=== PATIENT | male | born 1950 ===

== ENCOUNTER 2018-04-12 21:00 | Inpatient (IN) | payer MEDICARE ==
[~2018-04-12] VITALS: Ht 190.5 cm; Wt 69.9 kg
[~2018-04-12 21:00] MED LIST: AMLO5TAB10 PO; ASPI-630 PO; CITA20TA6 PO; L GA1CAP2 PO; METO50TA29 PO; OMEP20CA10 PO; PRED5TAB PO; TRAM50TA PO
[2018-04-12] MEDS ORDERED: VANCOMYCIN PER PHARMACY MC ONE (21:45)
[2018-04-12] MEDS ORDERED: VANCOMYCIN 1.75 GM in IV NORMAL SALINE 500ML BAG 500 ML IV ONE (22:00)
[2018-04-12] MEDS ORDERED: PIPERACILLIN/TAZOBACTAM 4.5 GM in IV NORMAL SALINE 100ML 100 ML IV ONE (22:00)
--- NOTE | 2018-04-12 22:08 | PHYS DOC ---
Past Medical History Past Medical History: CHF, CVA, Hypertension, Other Additional Past Medical Histor: LEFT SIDED PARALYSIS (STEVE CABRERA APRN) Past Surgical History: No Surgical History (STEVE CABRERA APRN) Alcohol Use: None Drug Use: None (STEVE CABRERA APRN) Adult General Chief Complaint Chief Complaint: LOWER EXTREMITY SWELLING HPI HPI Patient is a 68 year old male with history of CVA, expressive aphasia, who presents to the ED with family. speaks Chukese and the granddaughter is in the ED interpreting for us. states patient usually has chronic pedal edema , is concerned his edema has decreased and he has discoloration on the right lateral lower extremity that they noted today with weeping of fluid from the extremities as well as a skin tear on the right lower extremity. denies patient having any injury. stated patient's current mentation is normal. Patient awake alert and oriented to self only. Patient can answer simple questions with either eye movements or slight sounds. (STEVE CABRERA APRN) Review of Systems Review of Systems Constitutional: GRIS Eyes: GRIS HENT: GRIS Respiratory: GRIS Cardiovascular: GRIS GI: GRIS : GRIS Musculoskeletal: GRIS Integument: Family reports bilateral lower extremity swelling, weeping, discoloration, laceration/skin tear. Neurologic: GRIS All other systems were reviewed and found to be within normal limits, except as documented in this note. (STEVE CABRERA APRN) Current Medications Current Medications Current Medications Medications (Trade) Dose Ordered Sig/Alejandro Start Time Stop Time Status Last Admin Dose Admin Piperacillin Sod/ Tazobactam Sod 4.5 gm/Sodium Chloride 100 ml @ 200 mls/hr 1X ONCE 04/12/18 22:00 04/12/18 22:29 DC 04/12/18 22:35 200 MLS/HR Vancomycin HCl (Vanco Per Pharmacy) 1 each 1X ONCE 04/12/18 21:45 04/12/18 22:00 DC Vancomycin HCl 1.75 gm/Sodium Chloride 500 ml @ 250 mls/hr 1X ONCE 04/12/18 22:00 04/12/18 23:59 DC 04/12/18 23:12 250 MLS/HR (NATHANIEL BISHOP MD) Allergies Allergies Allergies Coded Allergies Type Severity Reaction Last Updated Verified No Known Drug Allergies 02/05/16 No (NATHANIEL BISHOP MD) Physical Exam Physical Exam Constitutional: Well developed, well nourished, no acute distress HENT: Normocephalic, atraumatic, bilateral external ears normal, oropharynx moist, no oral exudates, nose normal. [] Eyes: PERRLA, EOMI, conjunctiva normal, no discharge. [] Neck: supple, no stridor. [] Cardiovascular:Heart rate regular rhythm Lungs & Thorax: Bilateral breath sounds clear to auscultation [] Abdomen: Bowel sounds normal, soft, GRIS for tenderness Skin: Warm, dry no rash Back: No tenderness, no CVA tenderness. [] Extremities: Bilateral upper extremities are contracted. Bilateral lower extremities with what appears to be +4 chronic edema right worse than left. The skin on the right lateral jaramillo is weeping. There is a open skin tear approximately 3 cm long on the right mid lateral jaramillo. Limited range of motion to bilateral lower extremities. +1 bilateral pedal pulses. There is discoloration on the right lateral lower extremity that appear to be from pressure. Neurologic: Alert and oriented X 1, normal motor function, normal sensory function, no focal deficits noted. [] Psychologic: Flat affect (MUTUNGA,STEVE MILITARY LOGISTICS SPECIALIST) Current Patient Data Vital Signs Vital Signs Date Time Temp Pulse Resp B/P (MAP) Pulse Ox O2 Delivery O2 Flow Rate FiO2 04/12/18 23:07 50 137/72 (93) 99 Room Air 04/12/18 21:00 97.8 16 97.8 (NATHANIEL BISHOP MD) Lab Values Laboratory Tests Test 04/12/18 21:50 White Blood Count 6.1 x10^3/uL (4.0-11.0) Red Blood Count 4.01 x10^6/uL (4.30-5.70) L Hemoglobin 12.6 g/dL (13.0-17.5) L Hematocrit 38.7 % (39.0-53.0) L Mean Corpuscular Volume 97 fL (79-100) Mean Corpuscular Hemoglobin 32 pg (25-35) Mean Corpuscular Hemoglobin Concent 33 g/dL (31-37) Red Cell Distribution Width 13.9 % (11.5-14.5) Platelet Count 163 x10^3/uL (140-400) Neutrophils (%) (Auto) 47 % (31-73) Lymphocytes (%) (Auto) 42 % (24-48) Monocytes (%) (Auto) 6 % (0-9) Eosinophils (%) (Auto) 4 % (0-3) H Basophils (%) (Auto) 1 % (0-3) Neutrophils # (Auto) 2.8 x10^3uL (1.8-7.7) Lymphocytes # (Auto) 2.6 x10^3/uL (1.0-4.8) Monocytes # (Auto) 0.4 x10^3/uL (0.0-1.1) Eosinophils # (Auto) 0.2 x10^3/uL (0.0-0.7) Basophils # (Auto) 0.1 x10^3/uL (0.0-0.2) Prothrombin Time 14.4 SEC (11.7-14.0) H Prothrombin Time INR 1.2 (0.8-1.1) H PTT 30 SEC (24-38) Sodium Level 143 mmol/L (136-145) Potassium Level 4.1 mmol/L (3.5-5.1) Chloride Level 104 mmol/L (98-107) Carbon Dioxide Level 28 mmol/L (21-32) Anion Gap 11 (6-14) Blood Urea Nitrogen 21 mg/dL (8-26) Creatinine 0.8 mg/dL (0.7-1.3) Estimated GFR (Cockcroft-Gault) 96.7 BUN/Creatinine Ratio 26 (6-20) H Glucose Level 87 mg/dL (70-99) Lactic Acid Level 1.3 mmol/L (0.4-2.0) Calcium Level 8.6 mg/dL (8.5-10.1) Total Bilirubin 0.7 mg/dL (0.2-1.0) Aspartate Amino Transferase (AST) 23 U/L (15-37) Alanine Aminotransferase (ALT) 19 U/L (16-63) Alkaline Phosphatase 62 U/L (46-116) Ammonia 19 mcmol/L (11-34) Creatine Kinase 256 U/L (39-308) Creatine Kinase MB (Mass) 5.4 ng/mL (0.0-3.6) H Creatine Kinase MB Relative Index 2.1 % (0-4) Troponin I Quantitative 0.025 ng/mL (0.000-0.055) NR-Pij-M-Type Natriuretic Peptide 328 pg/mL (0-124) H Total Protein 7.6 g/dL (6.4-8.2) Albumin 3.5 g/dL (3.4-5.0) Albumin/Globulin Ratio 0.9 (1.0-1.7) L Procalcitonin < 0.10 ng/mL (0.00-0.10) Laboratory Tests 04/12/18 21:50 Laboratory Tests 04/12/18 21:50 Microbiology 04/12/18 Blood Culture - Final, Complete NO GROWTH AFTER 5 DAYS (NATHANIEL BISHOP MD) Lab Values Laboratory Tests Test 04/12/18 21:50 White Blood Count 6.1 x10^3/uL (4.0-11.0) Red Blood Count 4.01 x10^6/uL (4.30-5.70) L Hemoglobin 12.6 g/dL (13.0-17.5) L Hematocrit 38.7 % (39.0-53.0) L Mean Corpuscular Volume 97 fL (79-100) Mean Corpuscular Hemoglobin 32 pg (25-35) Mean Corpuscular Hemoglobin Concent 33 g/dL (31-37) Red Cell Distribution Width 13.9 % (11.5-14.5) Platelet Count 163 x10^3/uL (140-400) Neutrophils (%) (Auto) 47 % (31-73) Lymphocytes (%) (Auto) 42 % (24-48) Monocytes (%) (Auto) 6 % (0-9) Eosinophils (%) (Auto) 4 % (0-3) H Basophils (%) (Auto) 1 % (0-3) Neutrophils # (Auto) 2.8 x10^3uL (1.8-7.7) Lymphocytes # (Auto) 2.6 x10^3/uL (1.0-4.8) Monocytes # (Auto) 0.4 x10^3/uL (0.0-1.1) Eosinophils # (Auto) 0.2 x10^3/uL (0.0-0.7) Basophils # (Auto) 0.1 x10^3/uL (0.0-0.2) Prothrombin Time 14.4 SEC (11.7-14.0) H Prothrombin Time INR 1.2 (0.8-1.1) H PTT 30 SEC (24-38) Sodium Level 143 mmol/L (136-145) Potassium Level 4.1 mmol/L (3.5-5.1) Chloride Level 104 mmol/L (98-107) Carbon Dioxide Level 28 mmol/L (21-32) Anion Gap 11 (6-14) Blood Urea Nitrogen 21 mg/dL (8-26) Creatinine 0.8 mg/dL (0.7-1.3) Estimated GFR (Cockcroft-Gault) 96.7 BUN/Creatinine Ratio 26 (6-20) H Glucose Level 87 mg/dL (70-99) Lactic Acid Level 1.3 mmol/L (0.4-2.0) Calcium Level 8.6 mg/dL (8.5-10.1) Total Bilirubin 0.7 mg/dL (0.2-1.0) Aspartate Amino Transferase (AST) 23 U/L (15-37) Alanine Aminotransferase (ALT) 19 U/L (16-63) Alkaline Phosphatase 62 U/L (46-116) Ammonia 19 mcmol/L (11-34) Creatine Kinase 256 U/L (39-308) Creatine Kinase MB (Mass) 5.4 ng/mL (0.0-3.6) H Creatine Kinase MB Relative Index 2.1 % (0-4) Troponin I Quantitative 0.025 ng/mL (0.000-0.055) TR-Xyb-O-Type Natriuretic Peptide 328 pg/mL (0-124) H Total Protein 7.6 g/dL (6.4-8.2) Albumin 3.5 g/dL (3.4-5.0) Albumin/Globulin Ratio 0.9 (1.0-1.7) L Procalcitonin < 0.10 ng/mL (0.00-0.10) Laboratory Tests 04/12/18 21:50 Laboratory Tests 04/12/18 21:50 (STEVE CABRERA APRN) EKG EKG [] (STEVE CABRERA APRN) Radiology/Procedures Radiology/Procedures [] (STEVE CABRERA APRN) Course & Med Decision Making Course & Med Decision Making Pertinent Labs and Imaging studies reviewed. (See chart for details) This is a 68-year-old male patient presenting to the ED to be evaluated for what family describes as decreased in a chronic edema to bilateral lower extremities, weeping from the right lower extremity, skin tear on the right lower extremity. Patient is afebrile. CBC with a normal WBC, CMP with no acute findings, lactic is normal. Chest x- ray interpreted by radiologist was concerning for pneumoperitoneum. CT of abdomen and pelvic ordered. Information left with Dr. Bishop to check on the Ct prior to admission. (STEVE CABRERA APRN) Course & Med Decision Making MARISOL CT NEGATIVE FOR PNEUMOPERITONEUM. ADMITTED TO MEDICAL SERVICE FOR ABX, TREATMENT OF ABOVE LOWER EXT CELLULITIS. Staff Physician Addendum: I was working in the ER during the course of this patient's visit. I was available for consultation as needed, but I was not directly involved in the care of this patient. (NATHANIEL BISHOP MD) Dragon Disclaimer Dragon Disclaimer This electronic medical record was generated, in whole or in part, using a voice recognition dictation system. (STEVE CABRERA APRN) Departure Departure Impression: Primary Impression: Bilateral lower extremity edema Disposition: ADMITTED INPATIENT Admitting Physician: Rina Allison (NATHANIEL BISHOP MD) Condition: STABLE Referrals: CAIO MCKEON AUCTION BLOCK CLERK-C (PCP) Scripts Amoxicillin/Potassium Clav (AUGMENTIN 500-125 TABLET) 1 Each Tablet 1 TAB PO BID for infection, #20 TAB Prov: CONNIE PERRY MD 04/14/18 STEVE CABRERA APRN Apr 12, 2018 22:08 NATHANIEL BISHOP MD Apr 13, 2018 04:42
[2018-04-12 22:14] LABS: BASO # 0.1 x10^3/uL (0.0-0.2); BASO % 1 % (0-3); EOS # 0.2 x10^3/uL (0.0-0.7); EOS % 4 % (0-3); HEMATOCRIT 38.7 % (39.0-53.0); HEMOGLOBIN 12.6 g/dL (13.0-17.5); LYMPH # 2.6 x10^3/uL (1.0-4.8); LYMPH % 42 % (24-48); MEAN CORPUSCULAR HEMOGLOBIN 32 pg (25-35); MEAN CORPUSCULAR HGB CONC 33 g/dL (31-37); MEAN CORPUSCULAR VOLUME 97 fL (79-100); MONO # 0.4 x10^3/uL (0.0-1.1); MONO % 6 % (0-9); NEUT # 2.8 x10^3uL (1.8-7.7); NEUT % 47 % (31-73); PLATELET COUNT 163 x10^3/uL (140-400); RED BLOOD COUNT 4.01 x10^6/uL (4.30-5.70); RED CELL DISTRIBUTION WIDTH 13.9 % (11.5-14.5); WHITE BLOOD COUNT 6.1 x10^3/uL (4.0-11.0)
[2018-04-12 22:29] LABS: CALCIUM 8.6 mg/dL (8.5-10.1); CREATININE 0.8 mg/dL (0.7-1.3); GFR 96.7; POTASSIUM 4.1 mmol/L (3.5-5.1)
[2018-04-12 22:37] LABS: PROTHROMBIN TIME PATIENT 14.4 SEC (11.7-14.0)
[2018-04-12 22:39] LABS: ALBUMIN 3.5 g/dL (3.4-5.0); ALBUMIN/GLOBULIN RATIO 0.9 (1.0-1.7); TOTAL BILIRUBIN 0.7 mg/dL (0.2-1.0); TOTAL PROTEIN 7.6 g/dL (6.4-8.2)
--- NOTE | 2018-04-12 22:46 | RAD ---
Ultrasound venous Doppler INDICATION:BILAT LEG SWELLING TECHNIQUE: Grayscale, color Doppler and spectral waveform ultrasound images of the bilateral lower extremities deep veins obtained. COMPARISON: None FINDINGS: The interrogated deep veins are compressible and demonstrate evidence of blood flow with normal respiratory variation and response to augmentation. IMPRESSION: No sonographic evidence of acute DVT of the bilateral lower extremity deep veins. Electronically signed by: Magno Mack DO (04/12/2018 10:43 PM) [facility]
--- NOTE | 2018-04-12 23:29 | RAD ---
Indication:BLE SWELLING. UNABLE TO EXTEND NECK TECHNIQUE:Portable AP chest X-ray COMPARISON:None FINDINGS: Heart is normal in size. Patient is rotated to the right side. Lungs are clear. No pneumothorax or pleural effusion. Visualized bony thorax within normal limits. Bilateral subdiaphragmatic lucencies are seen. IMPRESSION: 1. No acute pulmonary process. 2. Bilateral subdiaphragmatic lucency most likely secondary to juxta position of the hepatic flexure and splenic flexure. If concern for pneumoperitoneum is high, please consider CT abdomen pelvis. 3. Distended upper colon. Correlate for distal obstruction. Electronically signed by: Magno Mack DO (04/12/2018 11:27 PM) [facility]
[2018-04-13] LABS: BILIRUBIN,URINE MODERATE (NEG); CLARITY,URINE CLOUDY; COLOR,URINE AMBER; NITRITE,URINE NEGATIVE (NEG); PH,URINE 5.5; PROTEIN,URINE NEGATIVE (NEG-TRACE)
[2018-04-13] MEDS ORDERED: IOHEXOL 300 MG/ML 100ML VIAL. IV ONE
[2018-04-13] MEDS ORDERED: CONTRAST GIVEN. MC PRN
[2018-04-13 00:10] LABS: BACTERIA,URINE 0 /HPF (0-FEW); RBC,URINE OCC /HPF (0-2); WBC,URINE 0 /HPF (0-4)
[2018-04-13 00:11] LABS: SQUAMOUS EPITHELIAL CELL,UR FEW /LPF
--- NOTE | 2018-04-13 00:43 | RAD ---
EXAM: CT Abdomen and Pelvis with IV contrast CLINICAL HISTORY: eval for pneumoperitoneum; abdominal pain. COMPARISON: 02/05/2016 TECHNIQUE: Helical CT of the abdomen and pelvis was performed following the administration of intravenous contrast. Oral contrast was administered. Axial, coronal and sagittal reformatted images were generated. PQRS compliance statement - One or more of the following individualized dose reduction techniques were utilized for this study: 1. Automated exposure control 2. Adjustment of the mA and/or kV according to patient size 3. Use of iterative reconstruction technique FINDINGS: Lower chest: Linear opacities in lower lobes and lingula likely scarring/atelectasis. Coronary artery calcification is seen. Abdomen and Pelvis: No focal liver lesion. Gallbladder is normal. No biliary ductal dilatation. Spleen is normal in appearance. Adrenal glands are unremarkable. Pancreas is grossly unremarkable. Symmetric nephrograms. No focal renal lesion. No hydronephrosis. No hydroureter. Large volume colonic stool content is seen throughout the colon. No small bowel dilatation. No evidence for small bowel obstruction. No evidence for free intraperitoneal gas. No abdominal or pelvic ascites. No abdominal or pelvic lymphadenopathy by size criteria although a few prominent iliac chain and inguinal lymph nodes are seen. Bones: Diffusely decreased bone mineral density. Degenerative changes of the spine. IMPRESSION: 1. No evidence for bowel obstruction. 2. Large volume colonic stool content. 3. No evidence for free intraperitoneal gas. Electronically signed by: Beni Knapp MD (04/13/2018 12:40 AM) [id number]
[2018-04-13] MEDS ORDERED: MORPHINE SULFATE 4 MG/ML VIAL. IV PRN (00:45)
[2018-04-13] MEDS ORDERED: DIPHTH,PERTUSS(ACELL),TET TOX 0.5 ML DISP.SYRIN. VAX IM ONE (00:45)
[2018-04-13] MEDS ORDERED: ONDANSETRON PF 4 MG/2 ML VIAL. IV PRN (00:45)
[2018-04-13 02:30] VITALS: BP 112/59
--- NOTE | 2018-04-13 04:58 | EKG ---
[facility] [address] [place] [address] Test Date: 2018-04-12 Test Time: 21:33:16 Pat Name: UMM CARDOZO Department: Room: [facility] Gender: M Packing Machine Operator: : [id number] Requested By: STEVE CABRERA Order Number: [id number] Reading MD: Saul Urena Measurements Intervals Rattan Rate: 54 P: UT: QRS: 28 QRSD: 100 T: 40 QT: 450 QTc: 429 Interpretive Statements SINUS RHYTHM NON-SPECIFIC ST/T CHANGES Electronically Signed On 04-20-2018 10:52:06 [employer] by Saul Urena
[2018-04-13 07:15] VITALS: BP 113/60
--- NOTE | 2018-04-13 08:59 | PDOC1 ---
History and Physical Date of Admission Date of Admission DATE: 04/13/18 TIME: 08:59 Identification/Chief Complaint Chief Complaint SEEN IN ER LAST PM history of CVA, expressive aphasia, who presents to the ED with family. speaks Chukese and the granddaughter interpreting for us. states patient usually has chronic pedal edema, is concerned his edema has decreased and he has discoloration on the right lateral lower extremity that they noted today with weeping of fluid from the extremities as well as a skin tear on the right lower extremity. Past Medical History Past Medical History Past Medical History Past Medical History: CHF, CVA, Hypertension, Other Additional Past Medical Histor: LEFT SIDED PARALYSIS Past Medical History: CHF, CVA, Hypertension, Other Additional Past Medical Histor: LEFT SIDED PARALYSIS, Past Surgical History: No Surgical History, Other Alcohol Use: None Drug Use: None FAMILY HX HTN Cardiovascular: HTN GI: Constipation Dermatology: Cellulitis Past Surgical History Past Surgical History: No pertinent history Family History Family History: No Significant, Hypertension Social History Smoke: No ALCOHOL: none Drugs: None Current Medications Current Medications Current Medications Piperacillin Sod/ Tazobactam Sod 4.5 gm/Sodium Chloride 100 ml @ 200 mls/hr 1X ONCE IV Last administered on 04/12/18at 22:35; Start 04/12/18 at 22:00; Stop 04/12/18 at 22:29; Status DC Vancomycin HCl (Vanco Per Pharmacy) 1 each 1X ONCE MC ; Start 04/12/18 at 21:45 ; Stop 04/12/18 at 22:00; Status DC Vancomycin HCl 1.75 gm/Sodium Chloride 500 ml @ 250 mls/hr 1X ONCE IV Last administered on 04/12/18at 23:12; Start 04/12/18 at 22:00; Stop 04/12/18 at 23:59 ; Status DC Iohexol (Omnipaque 300 Mg/ml) 75 ml 1X ONCE IV Last administered on 04/13/18at 00:12; Start 04/13/18 at 00:00; Stop 04/13/18 at 00:01; Status DC Info (CONTRAST GIVEN -- Rx MONITORING) 1 each PRN DAILY PRN MC SEE COMMENTS; Start 04/13/18 at 00:00; Stop 04/15/18 at 00:00 Ondansetron HCl (Zofran) 4 mg PRN Q8HRS PRN IV NAUSEA/VOMITING; Start 04/13/18 at 00:45; Stop 04/14/18 at 00:44 Morphine Sulfate (Morphine Sulfate) 2 mg PRN Q2HR PRN IV PAIN; Start 04/13/18 at 00:45; Stop 04/14/18 at 00:44 Diphtheria/ Tetanus/Acell Pertussis (Boostrix) 0.5 ml ONCE ONCE VAX IM Last administered on 04/13/18at 01:33; Start 04/13/18 at 00:45; Stop 04/13/18 at 00:48 ; Status DC Influenza Virus Vaccine (Afluria Trivalent [id number] Syringe) 0.5 ml ONCE ONCE VAX IM Last administered on 04/13/18at 08:25; Start 04/13/18 at 09:00; Stop at 09:01 Active Scripts Active Reported Tramadol Hcl 50 Mg Tablet 0.5 Tab PO PRN Q6HRS [facility] Capsule (L Gasseri/B Bifidum/B Longum) 1 Each Capsule 1 Each PO Prednisone 5 Mg Tablet 5 Mg PO Omeprazole 20 Mg Capsule.dr 1 Cap PO DAILY Metoprolol Succinate 50 Mg Tab.er.24h 50 Mg PO Citalopram Hbr (Citalopram Hydrobromide) 20 Mg Tablet 1 Tab PO DAILY Aspirin 81 Mg Tab.chew 1 Tab PO DAILY Amlodipine Besylate 5 Mg Tablet 1 Tab PO DAILY Allergies Allergies: Coded Allergies: No Known Drug Allergies (Unverified , 02/05/16) ROS ALLERGY AND IMMUNOLOGY: No: Hives, Insect Bite Sensitivity, Itchy/Watery Eyes, Nasal Congestion, Post Nasal Drip, Seasonal Allergies, Other Hematological and Lymphatic: No: Bleeding Problems, Blood Clots, Blood Transfusions, Brusing, Night Sweats, Pallor, Swollen Lymph Nodes, Other ENDOCRINE: No: Breast Changes, Galactorrhea, Hair Pattern Changes, Hot Flashes , Malaise/lethargy, Mood Swings, Palpitations, Polydipsia/polyuria, Skin Changes , Temperature Intolerance, Unexpected Weight Changes, Other Gastrointestinal: No Nausea, No Vomiting, No Abdominal Pain, No Diarrhea, No Constipation, No Melena, No Hematochezia, No Other Neurological: No Behavorial Changes, No Bowel/Bladder ControlChng, No Confusion , No Dizziness, No Gait Disturbance, No Headaches, No Impaired Coord/balance, No Memory Loss, No Numbness/Tingling, No Seizures, No Speech Problems, No Tremors, No Visual Changes, No Weakness, No Other Skin: Yes Dry Skin, Yes Rash, Yes Skin Lesion Changes Physical Exam Physical Exam Physical Exam Physical Exam Constitutional: Well developed, well nourished, no acute distress HENT: Normocephalic, atraumatic, bilateral external ears normal, oropharynx moist, no oral exudates, nose normal. [] Eyes: PERRLA, EOMI, conjunctiva normal, no discharge. [] Neck: supple, no stridor. [] Cardiovascular:Heart rate regular rhythm Lungs & Thorax: Bilateral breath sounds clear to auscultation [] Abdomen: Bowel sounds normal, soft, GRIS for tenderness Skin: Warm, dry no rash Back: No tenderness, no CVA tenderness. [] Extremities: Bilateral upper extremities are contracted. Bilateral lower extremities with what appears to be +4 chronic edema right worse than left. The skin on the right lateral jaramillo is weeping. There is a open skin tear approximately 3 cm long on the right mid lateral jaramillo. Limited range of motion to bilateral lower extremities. +1 bilateral pedal pulses. There is discoloration on the right lateral lower extremity that appear to be from pressure. Neurologic: Alert and oriented X 1, normal motor function, normal sensory function, no focal deficits noted. [] General: Cooperative, No acute distress HEENT: Atraumatic, PERRLA Lungs: Clear to auscultation Heart: RRR Abdomen: Normal bowel sounds Rectal Exam: not examined PELVIC: Examination not indicated Extremities: No cyanosis Vitals Vitals Vital Signs Date Time Temp Pulse Resp B/P (MAP) Pulse Ox O2 Delivery O2 Flow Rate FiO2 04/13/18 07:38 Room Air 04/13/18 07:15 97.0 56 16 113/60 (77) 98 97.0 Labs Labs Laboratory Tests Test 04/12/18 21:50 04/12/18 23:45 White Blood Count 6.1 x10^3/uL (4.0-11.0) Red Blood Count 4.01 x10^6/uL (4.30-5.70) Hemoglobin 12.6 g/dL (13.0-17.5) Hematocrit 38.7 % (39.0-53.0) Mean Corpuscular Volume 97 fL (79-100) Mean Corpuscular Hemoglobin 32 pg (25-35) Mean Corpuscular Hemoglobin Concent 33 g/dL (31-37) Red Cell Distribution Width 13.9 % (11.5-14.5) Platelet Count 163 x10^3/uL (140-400) Neutrophils (%) (Auto) 47 % (31-73) Lymphocytes (%) (Auto) 42 % (24-48) Monocytes (%) (Auto) 6 % (0-9) Eosinophils (%) (Auto) 4 % (0-3) Basophils (%) (Auto) 1 % (0-3) Neutrophils # (Auto) 2.8 x10^3uL (1.8-7.7) Lymphocytes # (Auto) 2.6 x10^3/uL (1.0-4.8) Monocytes # (Auto) 0.4 x10^3/uL (0.0-1.1) Eosinophils # (Auto) 0.2 x10^3/uL (0.0-0.7) Basophils # (Auto) 0.1 x10^3/uL (0.0-0.2) Prothrombin Time 14.4 SEC (11.7-14.0) Prothromb Time International Ratio 1.2 (0.8-1.1) Activated Partial Thromboplast Time 30 SEC (24-38) Sodium Level 143 mmol/L (136-145) Potassium Level 4.1 mmol/L (3.5-5.1) Chloride Level 104 mmol/L (98-107) Carbon Dioxide Level 28 mmol/L (21-32) Anion Gap 11 (6-14) Blood Urea Nitrogen 21 mg/dL (8-26) Creatinine 0.8 mg/dL (0.7-1.3) Estimated GFR (Cockcroft-Gault) 96.7 BUN/Creatinine Ratio 26 (6-20) Glucose Level 87 mg/dL (70-99) Lactic Acid Level 1.3 mmol/L (0.4-2.0) Calcium Level 8.6 mg/dL (8.5-10.1) Total Bilirubin 0.7 mg/dL (0.2-1.0) Aspartate Amino Transf (AST/SGOT) 23 U/L (15-37) Alanine Aminotransferase (ALT/SGPT) 19 U/L (16-63) Alkaline Phosphatase 62 U/L (46-116) Ammonia 19 mcmol/L (11-34) Creatine Kinase 256 U/L (39-308) Creatine Kinase MB (Mass) 5.4 ng/mL (0.0-3.6) Creatine Kinase MB Relative Index 2.1 % (0-4) Troponin I Quantitative 0.025 ng/mL (0.000-0.055) MY-Bri-W-Type Natriuretic Peptide 328 pg/mL (0-124) Total Protein 7.6 g/dL (6.4-8.2) Albumin 3.5 g/dL (3.4-5.0) Albumin/Globulin Ratio 0.9 (1.0-1.7) Procalcitonin < 0.10 ng/mL (0.00-0.10) Urine Collection Type U cath Urine Color Mgiuelina Urine Clarity Cloudy Urine pH 5.5 Urine Specific Philip 1.025 Urine Protein Negative mg/dL (NEG-TRACE) Urine Glucose (UA) Negative mg/dL (NEG) Urine Ketones (Stick) Negative mg/dL (NEG) Urine Blood Negative (NEG) Urine Nitrite Negative (NEG) Urine Bilirubin Moderate (NEG) Urine Urobilinogen Dipstick 1.0 mg/dL (0.2 mg/dL) Urine Leukocyte Esterase Negative (NEG) Urine RBC Occ /HPF (0-2) Urine WBC 0 /HPF (0-4) Urine Squamous Epithelial Cells Few /LPF Urine Bacteria 0 /HPF (0-FEW) Urine Mucus Mod /LPF Laboratory Tests Test 04/12/18 21:50 04/12/18 23:45 White Blood Count 6.1 x10^3/uL (4.0-11.0) Red Blood Count 4.01 x10^6/uL (4.30-5.70) Hemoglobin 12.6 g/dL (13.0-17.5) Hematocrit 38.7 % (39.0-53.0) Mean Corpuscular Volume 97 fL (79-100) Mean Corpuscular Hemoglobin 32 pg (25-35) Mean Corpuscular Hemoglobin Concent 33 g/dL (31-37) Red Cell Distribution Width 13.9 % (11.5-14.5) Platelet Count 163 x10^3/uL (140-400) Neutrophils (%) (Auto) 47 % (31-73) Lymphocytes (%) (Auto) 42 % (24-48) Monocytes (%) (Auto) 6 % (0-9) Eosinophils (%) (Auto) 4 % (0-3) Basophils (%) (Auto) 1 % (0-3) Neutrophils # (Auto) 2.8 x10^3uL (1.8-7.7) Lymphocytes # (Auto) 2.6 x10^3/uL (1.0-4.8) Monocytes # (Auto) 0.4 x10^3/uL (0.0-1.1) Eosinophils # (Auto) 0.2 x10^3/uL (0.0-0.7) Basophils # (Auto) 0.1 x10^3/uL (0.0-0.2) Prothrombin Time 14.4 SEC (11.7-14.0) Prothromb Time International Ratio 1.2 (0.8-1.1) Activated Partial Thromboplast Time 30 SEC (24-38) Sodium Level 143 mmol/L (136-145) Potassium Level 4.1 mmol/L (3.5-5.1) Chloride Level 104 mmol/L (98-107) Carbon Dioxide Level 28 mmol/L (21-32) Anion Gap 11 (6-14) Blood Urea Nitrogen 21 mg/dL (8-26) Creatinine 0.8 mg/dL (0.7-1.3) Estimated GFR (Cockcroft-Gault) 96.7 BUN/Creatinine Ratio 26 (6-20) Glucose Level 87 mg/dL (70-99) Lactic Acid Level 1.3 mmol/L (0.4-2.0) Calcium Level 8.6 mg/dL (8.5-10.1) Total Bilirubin 0.7 mg/dL (0.2-1.0) Aspartate Amino Transf (AST/SGOT) 23 U/L (15-37) Alanine Aminotransferase (ALT/SGPT) 19 U/L (16-63) Alkaline Phosphatase 62 U/L (46-116) Ammonia 19 mcmol/L (11-34) Creatine Kinase 256 U/L (39-308) Creatine Kinase MB (Mass) 5.4 ng/mL (0.0-3.6) Creatine Kinase MB Relative Index 2.1 % (0-4) Troponin I Quantitative 0.025 ng/mL (0.000-0.055) UV-Dhq-B-Type Natriuretic Peptide 328 pg/mL (0-124) Total Protein 7.6 g/dL (6.4-8.2) Albumin 3.5 g/dL (3.4-5.0) Albumin/Globulin Ratio 0.9 (1.0-1.7) Procalcitonin < 0.10 ng/mL (0.00-0.10) Urine Collection Type U cath Urine Color Miguelina Urine Clarity Cloudy Urine pH 5.5 Urine Specific Philip 1.025 Urine Protein Negative mg/dL (NEG-TRACE) Urine Glucose (UA) Negative mg/dL (NEG) Urine Ketones (Stick) Negative mg/dL (NEG) Urine Blood Negative (NEG) Urine Nitrite Negative (NEG) Urine Bilirubin Moderate (NEG) Urine Urobilinogen Dipstick 1.0 mg/dL (0.2 mg/dL) Urine Leukocyte Esterase Negative (NEG) Urine RBC Occ /HPF (0-2) Urine WBC 0 /HPF (0-4) Urine Squamous Epithelial Cells Few /LPF Urine Bacteria 0 /HPF (0-FEW) Urine Mucus Mod /LPF Images Images EXAM: CT Abdomen and Pelvis with IV contrast CLINICAL HISTORY: eval for pneumoperitoneum; abdominal pain. COMPARISON: 02/05/2016 TECHNIQUE: Helical CT of the abdomen and pelvis was performed following the administration of intravenous contrast. Oral contrast was administered. Axial, coronal and sagittal reformatted images were generated. PQRS compliance statement - One or more of the following individualized dose reduction techniques were utilized for this study: 1. Automated exposure control 2. Adjustment of the mA and/or kV according to patient size 3. Use of iterative reconstruction technique FINDINGS: Lower chest: Linear opacities in lower lobes and lingula likely scarring/atelectasis. Coronary artery calcification is seen. Abdomen and Pelvis: No focal liver lesion. Gallbladder is normal. No biliary ductal dilatation. Spleen is normal in appearance. Adrenal glands are unremarkable. Pancreas is grossly unremarkable. Symmetric nephrograms. No focal renal lesion. No hydronephrosis. No hydroureter. Large volume colonic stool content is seen throughout the colon. No small bowel dilatation. No evidence for small bowel obstruction. No evidence for free intraperitoneal gas. No abdominal or pelvic ascites. No abdominal or pelvic lymphadenopathy by size criteria although a few prominent iliac chain and inguinal lymph nodes are seen. Bones: Diffusely decreased bone mineral density. Degenerative changes of the spine. IMPRESSION: 1. No evidence for bowel obstruction. 2. Large volume colonic stool content. 3. No evidence for free intraperitoneal gas. 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 [employer]IOT[employer], CONNIE AGUIAR MD Apr 13, 2018 08:59
[2018-04-13 11:08] VITALS: BP 131/67
[2018-04-13 15:01] VITALS: BP 138/72
--- NOTE | 2018-04-13 15:54 | NUR ---
Wound Care; Consult to eval and treat skin tear to RLE (see detailed assessment). Cleansed and dressed with contact layer and foam dressing. Legs swollen, red and warm. Wrinkled skin to feet. Encouraged pt to turn periodically to avoid skin breakdown. No other open areas noted on head to toe inspection. Follow up 04/21/18
[2018-04-13 19:56] VITALS: BP 100/58
[2018-04-13 23:15] VITALS: BP 108/66
[2018-04-13] MEDS ORDERED: traMADol 50 MG TABLET PO PRN (23:45)
[2018-04-14] MEDS ORDERED: VANCOMYCIN PER PHARMACY MC PRN
[2018-04-14] MEDS: PIPERACILLIN/TAZOBACTAM 3.375 GM in IV NORMAL SALINE 50ML 50 ML IV SCH ×2 (00:43→06:16)
[2018-04-14] MEDS ORDERED: VANCOMYCIN 1 GM in IV NORMAL SALINE 250ML 250 ML IV SCH (01:00)
--- NOTE | 2018-04-14 01:10 | NUR ---
Pharmacy Vancomycin Dosing Note S:Consulted to monitor and dose vancomycin started 04/14/18. O:UMM CARDOZO is a 68 year old M with LOWER LEG EDEMA AND WEEPING . Height: 6 feet, 3 inches Weight: 69.138311 kg [place] Body Weight: 80.00 Adjusted Body Weight: 75.92 Dosing Weight: Actual Other Antibiotics: LABS: Last BUN: 21 Last Creatinine: 0.8 Creatinine Clearance: 72 mL/min Last WBC: 601 Last Procalcitonin: Tmax (past 24 hours): Microbiology: I/O: Drug Levels: Last level: on at Last dose given 04/12/18 at 2200 Vancomycin Dosing: Loading Dose: 1750MG IV X1 ON 04/12/18 2200 x1 PER MAR Dosing Weight: Actual Target Trough: 10-20 A: Based on: Actual Wt and CrCl P: 1. 04/14/18 0100 continue with Vancomycin 1000 mg IV q12h 2. Follow up Trough level on 04/15/18 at 1230 3. Pharmacy will continue to monitor, follow and adjust therapy as needed. DAYNE HENRIQUEZ RPH, 04/14/18 0110 Signed: 04/14/18 at 0111 by DAYNE HENRIQUEZ RPH PHA
[2018-04-14 03:34] VITALS: BP 112/63
[2018-04-14 06:00] LABS: BASO % 1 % (0-3); EOS # 0.3 x10^3/uL (0.0-0.7); EOS % 6 % (0-3); HEMATOCRIT 30.1 % (39.0-53.0); HEMOGLOBIN 9.9 g/dL (13.0-17.5); LYMPH % 42 % (24-48); MEAN CORPUSCULAR HEMOGLOBIN 32 pg (25-35); MEAN CORPUSCULAR HGB CONC 33 g/dL (31-37); MEAN CORPUSCULAR VOLUME 97 fL (79-100); MONO # 0.4 x10^3/uL (0.0-1.1); MONO % 8 % (0-9); NEUT # 2.1 x10^3uL (1.8-7.7); NEUT % 44 % (31-73); PLATELET COUNT 128 x10^3/uL (140-400); RED BLOOD COUNT 3.09 x10^6/uL (4.30-5.70); WHITE BLOOD COUNT 4.8 x10^3/uL (4.0-11.0)
[2018-04-14 06:34] LABS: ALBUMIN 2.4 g/dL (3.4-5.0); ALBUMIN/GLOBULIN RATIO 0.7 (1.0-1.7); GFR 74.8; POTASSIUM 3.9 mmol/L (3.5-5.1); TOTAL BILIRUBIN 0.6 mg/dL (0.2-1.0); TOTAL PROTEIN 5.8 g/dL (6.4-8.2)
[2018-04-14] MEDS ORDERED: METOPROLOL SUCC 24HR ER 50 MG TAB.ER.24H. PO SCH (07:00)
[2018-04-14 07:06] VITALS: BP 116/60
[2018-04-14] MEDS ORDERED: PANTOPRAZOLE 40 MG TABLET.DR. PO SCH (07:30)
[2018-04-14] MEDS ORDERED: ASPIRIN CHEWABLE 81 MG TABLET. PO SCH (08:00)
[2018-04-14] MEDS ORDERED: amLODIPine BESYLATE 5 MG TABLET PO SCH (09:00)
[2018-04-14] MEDS ORDERED: CITALOPRAM 20 MG TABLET. PO SCH (09:00)
--- NOTE | 2018-04-14 09:13 | PDOC ---
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 PLAN EMPERIC IV ANTIBIOTICS, VANC d/c, begin augmentin 500 mg po bid x 10 days Vitals Vitals Vital Signs Date Time Temp Pulse Resp B/P (MAP) Pulse Ox O2 Delivery O2 Flow Rate FiO2 04/14/18 08:25 50 116/60 04/14/18 07:06 97.7 18 96 Room Air 97.7 Physical Exam General: Alert, Oriented X3, Cooperative, No acute distress, mild distress Heart: Regular rate Lungs: Clear, Crackles Abdomen: Normal bowel sounds, Soft, No tenderness, No hepatosplenomegaly Extremities: No clubbing, No cyanosis Skin: Other (less erythema both ankles) Labs LABS Laboratory Tests Test 04/14/18 04:44 White Blood Count 4.8 x10^3/uL (4.0-11.0) Red Blood Count 3.09 x10^6/uL (4.30-5.70) Hemoglobin 9.9 g/dL (13.0-17.5) Hematocrit 30.1 % (39.0-53.0) Mean Corpuscular Volume 97 fL (79-100) Mean Corpuscular Hemoglobin 32 pg (25-35) Mean Corpuscular Hemoglobin Concent 33 g/dL (31-37) Red Cell Distribution Width 14.0 % (11.5-14.5) Platelet Count 128 x10^3/uL (140-400) Neutrophils (%) (Auto) 44 % (31-73) Lymphocytes (%) (Auto) 42 % (24-48) Monocytes (%) (Auto) 8 % (0-9) Eosinophils (%) (Auto) 6 % (0-3) Basophils (%) (Auto) 1 % (0-3) Neutrophils # (Auto) 2.1 x10^3uL (1.8-7.7) Lymphocytes # (Auto) 2.0 x10^3/uL (1.0-4.8) Monocytes # (Auto) 0.4 x10^3/uL (0.0-1.1) Eosinophils # (Auto) 0.3 x10^3/uL (0.0-0.7) Basophils # (Auto) 0.0 x10^3/uL (0.0-0.2) Sodium Level 146 mmol/L (136-145) Potassium Level 3.9 mmol/L (3.5-5.1) Chloride Level 110 mmol/L (98-107) Carbon Dioxide Level 30 mmol/L (21-32) Anion Gap 6 (6-14) Blood Urea Nitrogen 23 mg/dL (8-26) Creatinine 1.0 mg/dL (0.7-1.3) Estimated GFR (Cockcroft-Gault) 74.8 BUN/Creatinine Ratio 23 (6-20) Glucose Level 86 mg/dL (70-99) Calcium Level 8.0 mg/dL (8.5-10.1) Total Bilirubin 0.6 mg/dL (0.2-1.0) Aspartate Amino Transf (AST/SGOT) 19 U/L (15-37) Alanine Aminotransferase (ALT/SGPT) 14 U/L (16-63) Alkaline Phosphatase 53 U/L (46-116) Total Protein 5.8 g/dL (6.4-8.2) Albumin 2.4 g/dL (3.4-5.0) Albumin/Globulin Ratio 0.7 (1.0-1.7) Procalcitonin < 0.10 ng/mL (0.00-0.10) Comment Review of Relevant I have reviewed the following items carlos (where applicable) has been applied. Labs Laboratory Tests Test 04/12/18 21:50 04/12/18 23:45 04/14/18 04:44 White Blood Count 6.1 x10^3/uL (4.0-11.0) 4.8 x10^3/uL (4.0-11.0) Red Blood Count 4.01 x10^6/uL (4.30-5.70) 3.09 x10^6/uL (4.30-5.70) Hemoglobin 12.6 g/dL (13.0-17.5) 9.9 g/dL (13.0-17.5) Hematocrit 38.7 % (39.0-53.0) 30.1 % (39.0-53.0) Mean Corpuscular Volume 97 fL (79-100) 97 fL (79-100) Mean Corpuscular Hemoglobin 32 pg (25-35) 32 pg (25-35) Mean Corpuscular Hemoglobin Concent 33 g/dL (31-37) 33 g/dL (31-37) Red Cell Distribution Width 13.9 % (11.5-14.5) 14.0 % (11.5-14.5) Platelet Count 163 x10^3/uL (140-400) 128 x10^3/uL (140-400) Neutrophils (%) (Auto) 47 % (31-73) 44 % (31-73) Lymphocytes (%) (Auto) 42 % (24-48) 42 % (24-48) Monocytes (%) (Auto) 6 % (0-9) 8 % (0-9) Eosinophils (%) (Auto) 4 % (0-3) 6 % (0-3) Basophils (%) (Auto) 1 % (0-3) 1 % (0-3) Neutrophils # (Auto) 2.8 x10^3uL (1.8-7.7) 2.1 x10^3uL (1.8-7.7) Lymphocytes # (Auto) 2.6 x10^3/uL (1.0-4.8) 2.0 x10^3/uL (1.0-4.8) Monocytes # (Auto) 0.4 x10^3/uL (0.0-1.1) 0.4 x10^3/uL (0.0-1.1) Eosinophils # (Auto) 0.2 x10^3/uL (0.0-0.7) 0.3 x10^3/uL (0.0-0.7) Basophils # (Auto) 0.1 x10^3/uL (0.0-0.2) 0.0 x10^3/uL (0.0-0.2) Prothrombin Time 14.4 SEC (11.7-14.0) Prothromb Time International Ratio 1.2 (0.8-1.1) Activated Partial Thromboplast Time 30 SEC (24-38) Sodium Level 143 mmol/L (136-145) 146 mmol/L (136-145) Potassium Level 4.1 mmol/L (3.5-5.1) 3.9 mmol/L (3.5-5.1) Chloride Level 104 mmol/L (98-107) 110 mmol/L (98-107) Carbon Dioxide Level 28 mmol/L (21-32) 30 mmol/L (21-32) Anion Gap 11 (6-14) 6 (6-14) Blood Urea Nitrogen 21 mg/dL (8-26) 23 mg/dL (8-26) Creatinine 0.8 mg/dL (0.7-1.3) 1.0 mg/dL (0.7-1.3) Estimated GFR (Cockcroft-Gault) 96.7 74.8 BUN/Creatinine Ratio 26 (6-20) 23 (6-20) Glucose Level 87 mg/dL (70-99) 86 mg/dL (70-99) Lactic Acid Level 1.3 mmol/L (0.4-2.0) Calcium Level 8.6 mg/dL (8.5-10.1) 8.0 mg/dL (8.5-10.1) Total Bilirubin 0.7 mg/dL (0.2-1.0) 0.6 mg/dL (0.2-1.0) Aspartate Amino Transf (AST/SGOT) 23 U/L (15-37) 19 U/L (15-37) Alanine Aminotransferase (ALT/SGPT) 19 U/L (16-63) 14 U/L (16-63) Alkaline Phosphatase 62 U/L (46-116) 53 U/L (46-116) Ammonia 19 mcmol/L (11-34) Creatine Kinase 256 U/L (39-308) Creatine Kinase MB (Mass) 5.4 ng/mL (0.0-3.6) Creatine Kinase MB Relative Index 2.1 % (0-4) Troponin I Quantitative 0.025 ng/mL (0.000-0.055) WS-Sqq-M-Type Natriuretic Peptide 328 pg/mL (0-124) Total Protein 7.6 g/dL (6.4-8.2) 5.8 g/dL (6.4-8.2) Albumin 3.5 g/dL (3.4-5.0) 2.4 g/dL (3.4-5.0) Albumin/Globulin Ratio 0.9 (1.0-1.7) 0.7 (1.0-1.7) Procalcitonin < 0.10 ng/mL (0.00-0.10) < 0.10 ng/mL (0.00-0.10) Urine Collection Type U cath Urine Color Miguelina Urine Clarity Cloudy Urine pH 5.5 Urine Specific Rugby 1.025 Urine Protein Negative mg/dL (NEG-TRACE) Urine Glucose (UA) Negative mg/dL (NEG) Urine Ketones (Stick) Negative mg/dL (NEG) Urine Blood Negative (NEG) Urine Nitrite Negative (NEG) Urine Bilirubin Moderate (NEG) Urine Urobilinogen Dipstick 1.0 mg/dL (0.2 mg/dL) Urine Leukocyte Esterase Negative (NEG) Urine RBC Occ /HPF (0-2) Urine WBC 0 /HPF (0-4) Urine Squamous Epithelial Cells Few /LPF Urine Bacteria 0 /HPF (0-FEW) Urine Mucus Mod /LPF Laboratory Tests Test 04/14/18 04:44 White Blood Count 4.8 x10^3/uL (4.0-11.0) Red Blood Count 3.09 x10^6/uL (4.30-5.70) Hemoglobin 9.9 g/dL (13.0-17.5) Hematocrit 30.1 % (39.0-53.0) Mean Corpuscular Volume 97 fL (79-100) Mean Corpuscular Hemoglobin 32 pg (25-35) Mean Corpuscular Hemoglobin Concent 33 g/dL (31-37) Red Cell Distribution Width 14.0 % (11.5-14.5) Platelet Count 128 x10^3/uL (140-400) Neutrophils (%) (Auto) 44 % (31-73) Lymphocytes (%) (Auto) 42 % (24-48) Monocytes (%) (Auto) 8 % (0-9) Eosinophils (%) (Auto) 6 % (0-3) Basophils (%) (Auto) 1 % (0-3) Neutrophils # (Auto) 2.1 x10^3uL (1.8-7.7) Lymphocytes # (Auto) 2.0 x10^3/uL (1.0-4.8) Monocytes # (Auto) 0.4 x10^3/uL (0.0-1.1) Eosinophils # (Auto) 0.3 x10^3/uL (0.0-0.7) Basophils # (Auto) 0.0 x10^3/uL (0.0-0.2) Sodium Level 146 mmol/L (136-145) Potassium Level 3.9 mmol/L (3.5-5.1) Chloride Level 110 mmol/L (98-107) Carbon Dioxide Level 30 mmol/L (21-32) Anion Gap 6 (6-14) Blood Urea Nitrogen 23 mg/dL (8-26) Creatinine 1.0 mg/dL (0.7-1.3) Estimated GFR (Cockcroft-Gault) 74.8 BUN/Creatinine Ratio 23 (6-20) Glucose Level 86 mg/dL (70-99) Calcium Level 8.0 mg/dL (8.5-10.1) Total Bilirubin 0.6 mg/dL (0.2-1.0) Aspartate Amino Transf (AST/SGOT) 19 U/L (15-37) Alanine Aminotransferase (ALT/SGPT) 14 U/L (16-63) Alkaline Phosphatase 53 U/L (46-116) Total Protein 5.8 g/dL (6.4-8.2) Albumin 2.4 g/dL (3.4-5.0) Albumin/Globulin Ratio 0.7 (1.0-1.7) Procalcitonin < 0.10 ng/mL (0.00-0.10) Microbiology 04/12/18 Blood Culture - Preliminary, Resulted NO GROWTH AFTER 1 DAY Medications Current Medications Piperacillin Sod/ Tazobactam Sod 4.5 gm/Sodium Chloride 100 ml @ 200 mls/hr 1X ONCE IV Last administered on 04/12/18at 22:35; Start 04/12/18 at 22:00; Stop 04/12/18 at 22:29; Status DC Vancomycin HCl (Vanco Per Pharmacy) 1 each 1X ONCE MC ; Start 04/12/18 at 21:45 ; Stop 04/12/18 at 22:00; Status DC Vancomycin HCl 1.75 gm/Sodium Chloride 500 ml @ 250 mls/hr 1X ONCE IV Last administered on 04/12/18at 23:12; Start 04/12/18 at 22:00; Stop 04/12/18 at 23:59 ; Status DC Iohexol (Omnipaque 300 Mg/ml) 75 ml 1X ONCE IV Last administered on 04/13/18at 00:12; Start 04/13/18 at 00:00; Stop 04/13/18 at 00:01; Status DC Info (CONTRAST GIVEN -- Rx MONITORING) 1 each PRN DAILY PRN MC SEE COMMENTS; Start 04/13/18 at 00:00; Stop 04/15/18 at 00:00 Ondansetron HCl (Zofran) 4 mg PRN Q8HRS PRN IV NAUSEA/VOMITING; Start 04/13/18 at 00:45; Stop 04/14/18 at 00:44; Status DC Morphine Sulfate (Morphine Sulfate) 2 mg PRN Q2HR PRN IV PAIN; Start 04/13/18 at 00:45; Stop 04/14/18 at 00:44; Status DC Diphtheria/ Tetanus/Acell Pertussis (Boostrix) 0.5 ml ONCE ONCE VAX IM Last administered on 04/13/18at 01:33; Start 04/13/18 at 00:45; Stop 04/13/18 at 00:48 ; Status DC Influenza Virus Vaccine (Afluria Trivalent 8015-1590 Syringe) 0.5 ml ONCE ONCE VAX IM Last administered on 04/13/18at 08:25; Start 04/13/18 at 09:00; Stop at 09:01; Status DC Vancomycin HCl (Vanco Per Pharmacy) 1 each PRN DAILY PRN MC SEE COMMENTS Last administered on 04/14/18at 01:00; Start 04/14/18 at 00:00 Amlodipine Besylate (Norvasc) 5 mg DAILY PO Last administered on 04/14/18at 08: 25; Start 04/14/18 at 09:00 Aspirin (Children'S Aspirin) 81 mg DAILYWBKFT PO Last administered on at 08:25; Start 04/14/18 at 08:00 Citalopram Hydrobromide (CeleXA) 20 mg DAILY PO Last administered on 04/14/18at 08:26; Start 04/14/18 at 09:00 Metoprolol Succinate (Toprol Xl) 50 mg DAILY07 PO ; Start 04/14/18 at 07:00 Tramadol HCl (Ultram) 25 mg PRN Q6HRS PRN PO PAIN; Start 04/13/18 at 23:45 Pantoprazole Sodium (Protonix) 40 mg DAILYAC PO Last administered on 04/14/18at 08:25; Start 04/14/18 at 07:30 Piperacillin Sod/ Tazobactam Sod 3.375 gm/Sodium Chloride 50 ml @ 100 mls/hr Q6HRS IV Last administered on 04/14/18at 06:16; Start 04/14/18 at 00:00 Vancomycin HCl 1 gm/Sodium Chloride 250 ml @ 250 mls/hr Q12H IV Last administered on 04/14/18at 01:53; Start 04/14/18 at 01:00 Vancomycin HCl (Vancomycin Trough Level) 1 each 1X ONCE MC ; Start 04/15/18 at 12:30; Stop 04/15/18 at 12:31 Active Scripts Active Reported Tramadol Hcl 50 Mg Tablet 0.5 Tab PO PRN Q6HRS [employer] Capsule (L Gasseri/B Bifidum/B Longum) 1 Each Capsule 1 Each PO Prednisone 5 Mg Tablet 5 Mg PO Omeprazole 20 Mg Capsule.dr 1 Cap PO DAILY Metoprolol Succinate 50 Mg Tab.er.24h 50 Mg PO Citalopram Hbr (Citalopram Hydrobromide) 20 Mg Tablet 1 Tab PO DAILY Aspirin 81 Mg Tab.chew 1 Tab PO DAILY Amlodipine Besylate 5 Mg Tablet 1 Tab PO DAILY Vitals/I & O Vital Sign - Last 24 Hours 04/13/18 04/13/18 04/13/18 04/13/18 11:08 15:01 19:56 20:00 Temp 98.0 98.3 97.4 98.0 98.3 97.4 Pulse 56 52 61 Resp 18 20 16 B/P (MAP) 131/67 (88) 138/72 (94) 100/58 (72) Pulse Ox 98 97 96 O2 Delivery Room Air Room Air Room Air Room Air 04/13/18 04/14/18 04/14/18 04/14/18 23:15 03:34 06:20 07:06 Temp 97.8 98.1 97.7 97.8 98.1 97.7 Pulse 61 55 51 50 Resp 16 18 18 B/P (MAP) 108/66 (80) 112/63 (79) 116/60 (78) Pulse Ox 96 97 96 O2 Delivery Room Air Room Air Room Air 04/14/18 08:25 Pulse 50 B/P (MAP) 116/60 Intake and Output 04/13/18 04/13/18 04/14/18 15:00 23:00 07:00 Intake Total 0 ml 240 ml Balance 0 ml 240 ml CONNIE PERRY MD Apr 14, 2018 09:13
[2018-04-14 10:47] VITALS: BP 99/57
--- NOTE | 2018-04-14 12:00 | PDOC ---
Infectious Disease Note Vital Sign Vital Signs Vital Signs Date Time Temp Pulse Resp B/P (MAP) Pulse Ox O2 Delivery O2 Flow Rate FiO2 04/14/18 10:47 98.2 73 17 99/57 (71) 99 Room Air 98.2 Labs Lab Laboratory Tests Test 04/14/18 04:44 White Blood Count 4.8 x10^3/uL (4.0-11.0) Red Blood Count 3.09 x10^6/uL (4.30-5.70) Hemoglobin 9.9 g/dL (13.0-17.5) Hematocrit 30.1 % (39.0-53.0) Mean Corpuscular Volume 97 fL (79-100) Mean Corpuscular Hemoglobin 32 pg (25-35) Mean Corpuscular Hemoglobin Concent 33 g/dL (31-37) Red Cell Distribution Width 14.0 % (11.5-14.5) Platelet Count 128 x10^3/uL (140-400) Neutrophils (%) (Auto) 44 % (31-73) Lymphocytes (%) (Auto) 42 % (24-48) Monocytes (%) (Auto) 8 % (0-9) Eosinophils (%) (Auto) 6 % (0-3) Basophils (%) (Auto) 1 % (0-3) Neutrophils # (Auto) 2.1 x10^3uL (1.8-7.7) Lymphocytes # (Auto) 2.0 x10^3/uL (1.0-4.8) Monocytes # (Auto) 0.4 x10^3/uL (0.0-1.1) Eosinophils # (Auto) 0.3 x10^3/uL (0.0-0.7) Basophils # (Auto) 0.0 x10^3/uL (0.0-0.2) Sodium Level 146 mmol/L (136-145) Potassium Level 3.9 mmol/L (3.5-5.1) Chloride Level 110 mmol/L (98-107) Carbon Dioxide Level 30 mmol/L (21-32) Anion Gap 6 (6-14) Blood Urea Nitrogen 23 mg/dL (8-26) Creatinine 1.0 mg/dL (0.7-1.3) Estimated GFR (Cockcroft-Gault) 74.8 BUN/Creatinine Ratio 23 (6-20) Glucose Level 86 mg/dL (70-99) Calcium Level 8.0 mg/dL (8.5-10.1) Total Bilirubin 0.6 mg/dL (0.2-1.0) Aspartate Amino Transf (AST/SGOT) 19 U/L (15-37) Alanine Aminotransferase (ALT/SGPT) 14 U/L (16-63) Alkaline Phosphatase 53 U/L (46-116) Total Protein 5.8 g/dL (6.4-8.2) Albumin 2.4 g/dL (3.4-5.0) Albumin/Globulin Ratio 0.7 (1.0-1.7) Procalcitonin < 0.10 ng/mL (0.00-0.10) Micro Microbiology 04/12/18 Blood Culture - Preliminary, Resulted NO GROWTH AFTER 1 DAY Objective Assessment Rt leg cellulitis Rt leg ulcer CVA CHF HTN Plan Plan of Care change antibiotics to po augmentin leg elevation supportive care d/w ADRIANO Medina MD Apr 14, 2018 12:00
--- NOTE | 2018-04-14 14:43 | NUR ---
DERIC notified pt needs ambulance transportation to go home. SW arranged transportation via [facility] at 1700. RN notified.
[2018-04-14 14:51] VITALS: BP 105/60
--- NOTE | 2018-04-14 15:14 | PDOC3 ---
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 PLAN EMPERIC IV ANTIBIOTICS, VANC d/c, begin augmentin 500 mg po bid x 10 days d/w dr escoto Vitals Vitals Vital Signs Date Time Temp Pulse Resp B/P (MAP) Pulse Ox O2 Delivery O2 Flow Rate FiO2 04/14/18 08:25 50 116/60 04/14/18 07:06 97.7 18 96 Room Air 97.7 Physical Exam General: Alert, Oriented X3, Cooperative, No acute distress, Heart: Regular rate Lungs: Clear, Crackles Abdomen: Normal bowel sounds, Soft, No tenderness, No hepatosplenomegaly Extremities: No clubbing, No cyanosis Skin: Other (less erythema both ankles) Brief Hospital Course Mr. Aceves is a 68 old [sex] who presented with [cellulitis both legs, ankles ] CONDITION AT DISCHARGE: Improved Discharge Medications Current Medications Piperacillin Sod/ Tazobactam Sod 4.5 gm/Sodium Chloride 100 ml @ 200 mls/hr 1X ONCE IV Last administered on 04/12/18at 22:35; Start 04/12/18 at 22:00; Stop 04/12/18 at 22:29; Status DC Vancomycin HCl (Vanco Per Pharmacy) 1 each 1X ONCE MC ; Start 04/12/18 at 21:45 ; Stop 04/12/18 at 22:00; Status DC Vancomycin HCl 1.75 gm/Sodium Chloride 500 ml @ 250 mls/hr 1X ONCE IV Last administered on 04/12/18at 23:12; Start 04/12/18 at 22:00; Stop 04/12/18 at 23:59 ; Status DC Iohexol (Omnipaque 300 Mg/ml) 75 ml 1X ONCE IV Last administered on 04/13/18at 00:12; Start 04/13/18 at 00:00; Stop 04/13/18 at 00:01; Status DC Info (CONTRAST GIVEN -- Rx MONITORING) 1 each PRN DAILY PRN MC SEE COMMENTS; Start 04/13/18 at 00:00; Stop 04/15/18 at 00:00 Ondansetron HCl (Zofran) 4 mg PRN Q8HRS PRN IV NAUSEA/VOMITING; Start 04/13/18 at 00:45; Stop 04/14/18 at 00:44; Status DC Morphine Sulfate (Morphine Sulfate) 2 mg PRN Q2HR PRN IV PAIN; Start 04/13/18 at 00:45; Stop 04/14/18 at 00:44; Status DC Diphtheria/ Tetanus/Acell Pertussis (Boostrix) 0.5 ml ONCE ONCE VAX IM Last administered on 04/13/18at 01:33; Start 04/13/18 at 00:45; Stop 04/13/18 at 00:48 ; Status DC Influenza Virus Vaccine (Afluria Trivalent [id number] Syringe) 0.5 ml ONCE ONCE VAX IM Last administered on 04/13/18at 08:25; Start 04/13/18 at 09:00; Stop at 09:01; Status DC Vancomycin HCl (Vanco Per Pharmacy) 1 each PRN DAILY PRN MC SEE COMMENTS Last administered on 04/14/18at 01:00; Start 04/14/18 at 00:00 Amlodipine Besylate (Norvasc) 5 mg DAILY PO Last administered on 04/14/18at 08: 25; Start 04/14/18 at 09:00 Aspirin (Children'S Aspirin) 81 mg DAILYWBKFT PO Last administered on at 08:25; Start 04/14/18 at 08:00 Citalopram Hydrobromide (CeleXA) 20 mg DAILY PO Last administered on 04/14/18at 08:26; Start 04/14/18 at 09:00 Metoprolol Succinate (Toprol Xl) 50 mg DAILY07 PO ; Start 04/14/18 at 07:00 Tramadol HCl (Ultram) 25 mg PRN Q6HRS PRN PO PAIN; Start 04/13/18 at 23:45 Pantoprazole Sodium (Protonix) 40 mg DAILYAC PO Last administered on 04/14/18at 08:25; Start 04/14/18 at 07:30 Piperacillin Sod/ Tazobactam Sod 3.375 gm/Sodium Chloride 50 ml @ 100 mls/hr Q6HRS IV Last administered on 04/14/18at 06:16; Start 04/14/18 at 00:00 Vancomycin HCl 1 gm/Sodium Chloride 250 ml @ 250 mls/hr Q12H IV Last administered on 04/14/18at 01:53; Start 04/14/18 at 01:00 Vancomycin HCl (Vancomycin Trough Level) 1 each 1X ONCE MC ; Start 04/15/18 at 12:30; Stop 04/15/18 at 12:31 Active Scripts Active Reported Tramadol Hcl 50 Mg Tablet 0.5 Tab PO PRN Q6HRS [employer] Capsule (L Gasseri/B Bifidum/B Longum) 1 Each Capsule 1 Each PO Prednisone 5 Mg Tablet 5 Mg PO Omeprazole 20 Mg Capsule.dr 1 Cap PO DAILY Metoprolol Succinate 50 Mg Tab.er.24h 50 Mg PO Citalopram Hbr (Citalopram Hydrobromide) 20 Mg Tablet 1 Tab PO DAILY Aspirin 81 Mg Tab.chew 1 Tab PO DAILY Amlodipine Besylate 5 Mg Tablet 1 Tab PO DAILY Vital Signs Vital Signs Date Time Temp Pulse Resp B/P (MAP) Pulse Ox O2 Delivery O2 Flow Rate FiO2 04/14/18 14:51 97.6 63 16 105/60 (75) 98 Room Air 97.6 Labs Laboratory Tests Test 04/12/18 21:50 04/12/18 23:45 04/14/18 04:44 White Blood Count 6.1 x10^3/uL (4.0-11.0) 4.8 x10^3/uL (4.0-11.0) Red Blood Count 4.01 x10^6/uL (4.30-5.70) 3.09 x10^6/uL (4.30-5.70) Hemoglobin 12.6 g/dL (13.0-17.5) 9.9 g/dL (13.0-17.5) Hematocrit 38.7 % (39.0-53.0) 30.1 % (39.0-53.0) Mean Corpuscular Volume 97 fL (79-100) 97 fL (79-100) Mean Corpuscular Hemoglobin 32 pg (25-35) 32 pg (25-35) Mean Corpuscular Hemoglobin Concent 33 g/dL (31-37) 33 g/dL (31-37) Red Cell Distribution Width 13.9 % (11.5-14.5) 14.0 % (11.5-14.5) Platelet Count 163 x10^3/uL (140-400) 128 x10^3/uL (140-400) Neutrophils (%) (Auto) 47 % (31-73) 44 % (31-73) Lymphocytes (%) (Auto) 42 % (24-48) 42 % (24-48) Monocytes (%) (Auto) 6 % (0-9) 8 % (0-9) Eosinophils (%) (Auto) 4 % (0-3) 6 % (0-3) Basophils (%) (Auto) 1 % (0-3) 1 % (0-3) Neutrophils # (Auto) 2.8 x10^3uL (1.8-7.7) 2.1 x10^3uL (1.8-7.7) Lymphocytes # (Auto) 2.6 x10^3/uL (1.0-4.8) 2.0 x10^3/uL (1.0-4.8) Monocytes # (Auto) 0.4 x10^3/uL (0.0-1.1) 0.4 x10^3/uL (0.0-1.1) Eosinophils # (Auto) 0.2 x10^3/uL (0.0-0.7) 0.3 x10^3/uL (0.0-0.7) Basophils # (Auto) 0.1 x10^3/uL (0.0-0.2) 0.0 x10^3/uL (0.0-0.2) Prothrombin Time 14.4 SEC (11.7-14.0) Prothromb Time International Ratio 1.2 (0.8-1.1) Activated Partial Thromboplast Time 30 SEC (24-38) Sodium Level 143 mmol/L (136-145) 146 mmol/L (136-145) Potassium Level 4.1 mmol/L (3.5-5.1) 3.9 mmol/L (3.5-5.1) Chloride Level 104 mmol/L (98-107) 110 mmol/L (98-107) Carbon Dioxide Level 28 mmol/L (21-32) 30 mmol/L (21-32) Anion Gap 11 (6-14) 6 (6-14) Blood Urea Nitrogen 21 mg/dL (8-26) 23 mg/dL (8-26) Creatinine 0.8 mg/dL (0.7-1.3) 1.0 mg/dL (0.7-1.3) Estimated GFR (Cockcroft-Gault) 96.7 74.8 BUN/Creatinine Ratio 26 (6-20) 23 (6-20) Glucose Level 87 mg/dL (70-99) 86 mg/dL (70-99) Lactic Acid Level 1.3 mmol/L (0.4-2.0) Calcium Level 8.6 mg/dL (8.5-10.1) 8.0 mg/dL (8.5-10.1) Total Bilirubin 0.7 mg/dL (0.2-1.0) 0.6 mg/dL (0.2-1.0) Aspartate Amino Transf (AST/SGOT) 23 U/L (15-37) 19 U/L (15-37) Alanine Aminotransferase (ALT/SGPT) 19 U/L (16-63) 14 U/L (16-63) Alkaline Phosphatase 62 U/L (46-116) 53 U/L (46-116) Ammonia 19 mcmol/L (11-34) Creatine Kinase 256 U/L (39-308) Creatine Kinase MB (Mass) 5.4 ng/mL (0.0-3.6) Creatine Kinase MB Relative Index 2.1 % (0-4) Troponin I Quantitative 0.025 ng/mL (0.000-0.055) GF-Ouz-F-Type Natriuretic Peptide 328 pg/mL (0-124) Total Protein 7.6 g/dL (6.4-8.2) 5.8 g/dL (6.4-8.2) Albumin 3.5 g/dL (3.4-5.0) 2.4 g/dL (3.4-5.0) Albumin/Globulin Ratio 0.9 (1.0-1.7) 0.7 (1.0-1.7) Procalcitonin < 0.10 ng/mL (0.00-0.10) < 0.10 ng/mL (0.00-0.10) Urine Collection Type U cath Urine Color Miguelina Urine Clarity Cloudy Urine pH 5.5 Urine Specific [place] 1.025 Urine Protein Negative mg/dL (NEG-TRACE) Urine Glucose (UA) Negative mg/dL (NEG) Urine Ketones (Stick) Negative mg/dL (NEG) Urine Blood Negative (NEG) Urine Nitrite Negative (NEG) Urine Bilirubin Moderate (NEG) Urine Urobilinogen Dipstick 1.0 mg/dL (0.2 mg/dL) Urine Leukocyte Esterase Negative (NEG) Urine RBC Occ /HPF (0-2) Urine WBC 0 /HPF (0-4) Urine Squamous Epithelial Cells Few /LPF Urine Bacteria 0 /HPF (0-FEW) Urine Mucus Mod /LPF Laboratory Tests Test 04/14/18 04:44 White Blood Count 4.8 x10^3/uL (4.0-11.0) Red Blood Count 3.09 x10^6/uL (4.30-5.70) Hemoglobin 9.9 g/dL (13.0-17.5) Hematocrit 30.1 % (39.0-53.0) Mean Corpuscular Volume 97 fL (79-100) Mean Corpuscular Hemoglobin 32 pg (25-35) Mean Corpuscular Hemoglobin Concent 33 g/dL (31-37) Red Cell Distribution Width 14.0 % (11.5-14.5) Platelet Count 128 x10^3/uL (140-400) Neutrophils (%) (Auto) 44 % (31-73) Lymphocytes (%) (Auto) 42 % (24-48) Monocytes (%) (Auto) 8 % (0-9) Eosinophils (%) (Auto) 6 % (0-3) Basophils (%) (Auto) 1 % (0-3) Neutrophils # (Auto) 2.1 x10^3uL (1.8-7.7) Lymphocytes # (Auto) 2.0 x10^3/uL (1.0-4.8) Monocytes # (Auto) 0.4 x10^3/uL (0.0-1.1) Eosinophils # (Auto) 0.3 x10^3/uL (0.0-0.7) Basophils # (Auto) 0.0 x10^3/uL (0.0-0.2) Sodium Level 146 mmol/L (136-145) Potassium Level 3.9 mmol/L (3.5-5.1) Chloride Level 110 mmol/L (98-107) Carbon Dioxide Level 30 mmol/L (21-32) Anion Gap 6 (6-14) Blood Urea Nitrogen 23 mg/dL (8-26) Creatinine 1.0 mg/dL (0.7-1.3) Estimated GFR (Cockcroft-Gault) 74.8 BUN/Creatinine Ratio 23 (6-20) Glucose Level 86 mg/dL (70-99) Calcium Level 8.0 mg/dL (8.5-10.1) Total Bilirubin 0.6 mg/dL (0.2-1.0) Aspartate Amino Transf (AST/SGOT) 19 U/L (15-37) Alanine Aminotransferase (ALT/SGPT) 14 U/L (16-63) Alkaline Phosphatase 53 U/L (46-116) Total Protein 5.8 g/dL (6.4-8.2) Albumin 2.4 g/dL (3.4-5.0) Albumin/Globulin Ratio 0.7 (1.0-1.7) Procalcitonin < 0.10 ng/mL (0.00-0.10) Allergies Allergies Coded Allergies Type Severity Reaction Last Updated Verified No Known Drug Allergies 02/05/16 No Disposition/Orders: D/C to Home Patient Instructions d/c planning 37 min CONNIE PERRY MD Apr 14, 2018 15:14
[2018-04-14] MEDS ORDERED: AMOX1TAB58 PO (15:16)
--- NOTE | 2018-04-14 15:17 | DISCH ---
DISCHARGE INSTRUCTIONS Condition on Discharge Condition on Discharge: Stable Activity After Discharge Activity Instructions for Disc: Resume previous activity Lifting Instructions after Dis: No heavy lifting Driving Instructions after Dis: Do not drive Diet after Discharge Diet after Discharge: Level I Dysphagia pureed Liquid Texture: Honey-thick Swallowing Supervision: 1 to 1 feeding Wound Incision Care Wound/Incision Care: No wound care needed Checks after Discharge Checks after discharge: Check blood press - daily Contacting the DR. after DC Call your doctor for: If your condition worsens Treatment/Equipment after DC Adaptive Equipment Issued: None CONNIE PERRY MD Apr 14, 2018 15:17
--- NOTE | 2018-04-14 19:21 | NUR ---
Pt picked up by EMS transport. Paperwork given and pt's verbalize understanding of discharge and when to call. No complaints noted. Pharmacy notified by day nurse of medication needed. Family verbalize understanding to cook pickled meat medications. Will discharge at this time.
[2018-04-14] MEDS ORDERED: AMOXICILLIN/K CLAV 875/125MG TABLET. PO SCH (21:00)
--- NOTE | 2018-04-14 23:44 | CONS ---
DATE OF CONSULTATION: 04/14/2018 REQUESTING PHYSICIAN: Ceasar Mcclure M.D. REASON FOR CONSULTATION: Right leg cellulitis and edema. HISTORY OF PRESENT ILLNESS: This is a 68-year-old gentleman who is speaking Chuukese. The patient had a stroke for a while ago with contractures and complete bedbound and family takes care of him at home, who presented with right leg redness and pain. The patient has chronic swelling since 2004 and it became more red and painful, hence he came in. The patient denies through the shipping weigher from the [facility] at the bedside. Denies any fever and denies any nausea, vomiting or diarrhea. Denies any chest pain, shortness of breath, abdominal pain, urinary symptoms or bowel symptoms. 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 SOCIAL HISTORY: Negative for smoking, alcohol or drug use. The patient is at [facility]. ALLERGIES: No known drug allergies. CURRENT MEDICATIONS: Reviewed. The patient is on vancomycin and Zosyn. REVIEW OF SYSTEMS: As per HPI, all other systems reviewed are negative. PHYSICAL EXAMINATION: GENERAL: Alert, oriented gentleman through the shipping weigher not in any distress. VITAL SIGNS: Stable and afebrile. HEENT: NAD. NECK: Supple. No JVP and no lymphadenopathy. LUNGS: Clear. HEART: S1 and S2 regular. ABDOMEN: Benign. EXTREMITIES: The patient does not have much of any lower extremity usage. Upper extremity has left-sided paralysis and hand contractures. Right leg is a larger than the left with chronic edema. He does have some erythema, minor skin breakdown on the right leg, which is superficial with no drainage or purulence. NEUROLOGICAL: As I mentioned through the shipping weigher, the patient is at his baseline with CVA. LABORATORY DATA: White count is normal. Platelets are 128,000. BUN and creatinine is normal. Urinalysis unremarkable. Blood culture is negative. RADIOLOGICAL DATA: His ultrasound of the lower extremity negative for DVT. CT of the abdomen and pelvis is negative. Chest x-ray is unremarkable. IMPRESSION: 1. Right lower extremity cellulitis. 2. Right lower extremity minor superficial ulcer. 3. Chronic right lower extremity edema. 4. Cerebrovascular accident. 5. Hypertension. RECOMMENDATIONS: We can scale down vancomycin and Zosyn to p.o. Augmentin, supportive care, leg elevation and soon the patient can be discharged. Thank you very much, Dr. Mcclure, for giving me the opportunity to participate in this patient's care. ADRIANO AREVALO MD DR: PAUL/christiano JOB#: [id number] / [id number]
== END 2018-04-14 19:21 | disposition home or self-care (01) | DRG 602 ==
LOC: ER 21:00 → 6 SOUTH 23:10
PROVIDERS: ADMIT Internal Medicine; ATTEND Internal Medicine
DX: L03.115 Cellulitis of right lower limb (principal); G82.50 Quadriplegia, unspecified; L97.919 Non-pressure chronic ulcer of unspecified part of right lower leg with unspecified severity; I16.0 Hypertensive urgency; R60.0 Localized edema; L03.116 Cellulitis of left lower limb; I11.0 Hypertensive heart disease with heart failure; I50.9 Heart failure, unspecified; I69.320 Aphasia following cerebral infarction; Z74.01 Bed confinement status; Z82.49 Family history of ischemic heart disease and other diseases of the circulatory system; Z79.899 Other long term (current) drug therapy; I69.365 Other paralytic syndrome following cerebral infarction, bilateral
CPT/HCPCS: 36415; 71045; 74177; 80053; 81001; 82140; 82553; 83605; 83880; 84145; 84484; 85025; 85610; 85730; 87040; 90471; 90715; 90756; 93005; 93970; 96365; 96368; J2543; J3370; J7040; J7050; Q9967; 92526; 92610; 99285-25; J7030; Q2035

== ENCOUNTER 2018-06-28 20:35 | Emergency (ER) | payer SELFPAY ==
[~2018-06-28] VITALS: Ht 182.9 cm; Wt 69.9 kg
[~2018-06-28 20:35] MED LIST changes: +AMOX1TAB58 PO
[2018-06-28] MEDS ORDERED: ASPIRIN CHEWABLE 81 MG TABLET. PO ONE (21:00)
[2018-06-28 21:53] LABS: BASO # 0.1 x10^3/uL (0.0-0.2); BASO % 1 % (0-3); EOS # 0.1 x10^3/uL (0.0-0.7); EOS % 2 % (0-3); HEMATOCRIT 36.7 % (39.0-53.0); HEMOGLOBIN 12.1 g/dL (13.0-17.5); LYMPH # 2.5 x10^3/uL (1.0-4.8); LYMPH % 39 % (24-48); MEAN CORPUSCULAR HEMOGLOBIN 33 pg (25-35); MEAN CORPUSCULAR HGB CONC 33 g/dL (31-37); MEAN CORPUSCULAR VOLUME 99 fL (79-100); MONO # 0.4 x10^3/uL (0.0-1.1); MONO % 7 % (0-9); NEUT # 3.3 x10^3uL (1.8-7.7); NEUT % 51 % (31-73); PLATELET COUNT 157 x10^3/uL (140-400); RED BLOOD COUNT 3.72 x10^6/uL (4.30-5.70); RED CELL DISTRIBUTION WIDTH 13.7 % (11.5-14.5); WHITE BLOOD COUNT 6.5 x10^3/uL (4.0-11.0)
[2018-06-28] MEDS ORDERED: fentaNYL PF VIAL 100 MCG/2 ML VIAL IV ONE (22:00)
[2018-06-28 22:03] LABS: PROTHROMBIN TIME PATIENT 14.4 SEC (11.7-14.0)
[2018-06-28 22:05] LABS: CALCIUM 8.4 mg/dL (8.5-10.1); CREATININE 1.2 mg/dL (0.7-1.3); GFR 60.6; POTASSIUM 4.1 mmol/L (3.5-5.1)
[2018-06-28 22:11] LABS: ALBUMIN 3.3 g/dL (3.4-5.0); ALBUMIN/GLOBULIN RATIO 0.8 (1.0-1.7); TOTAL BILIRUBIN 0.6 mg/dL (0.2-1.0); TOTAL PROTEIN 7.4 g/dL (6.4-8.2)
--- NOTE | 2018-06-28 22:22 | RAD ---
AP portable chest radiograph 06/28/2018 Clinical History: Chest pain. An AP erect portable digital radiograph of the chest was obtained. Comparison study is dated 04/12/2018. The cardiac silhouette is mildly enlarged. The thoracic aorta is tortuous. Atherosclerotic calcification of the thoracic aorta is seen. Air distention of the colon is again seen within the upper abdomen. A moderate amount of stool is seen involving the distal transverse colon/visualized descending colon. No acute pulmonary infiltrate is seen. No pneumothorax or pleural effusion is noted. The osseous structures are unchanged. IMPRESSION: No acute abnormality is seen. Electronically signed by: Carlos Meyer MD (06/28/2018 10:19 PM) [facility]
[2018-06-28] MEDS ORDERED: CEPH500C PO (23:14)
--- NOTE | 2018-06-29 00:49 | PHYS DOC ---
Past Medical History Past Medical History: CHF, CVA, Hypertension, Other Additional Past Medical Histor: LEFT SIDED PARALYSIS Past Surgical History: No Surgical History Alcohol Use: None Drug Use: None Adult General Chief Complaint Chief Complaint: CHEST PAIN HPI HPI Patient is a 68 year old male nonverbal for a prior stroke at 2005 has chronic lower extremity edema who is presenting with chief complaint of primarily leg pain the noticed that both legs have been very swollen the right leg is always more swollen than the left but since yesterday he was complaining of bilateral leg pain of note he did have an ultrasound of his bilateral lower extremities on last admission that showed no DVT family says that the right leg is weeping a little bit more but basically similar in size and appearance no fever also they thought he was having chest pain earlier. Patient is almost completely nonverbal . Review of Systems Review of Systems LAN BY APHASIA Current Medications Current Medications Current Medications Medications (Trade) Dose Ordered Sig/Alejandro Start Time Stop Time Status Last Admin Dose Admin Aspirin (Children'S Aspirin) 324 mg 1X ONCE 06/28/18 21:00 06/28/18 21:01 DC 06/28/18 21:34 324 MG Fentanyl Citrate (Fentanyl 2ml Vial) 50 mcg 1X ONCE 06/28/18 22:00 06/28/18 22:01 DC Allergies Allergies Allergies Coded Allergies Type Severity Reaction Last Updated Verified No Known Drug Allergies 02/05/16 No Physical Exam Physical Exam Constitutional: Well developed, patient has evidence of a known CVA he is, drooling contractures noted occasionally mumbles this is baseline per family HENT: Normocephalic, atraumatic, bilateral external ears normal, oropharynx moist, no oral exudates, nose normal. [] Eyes: PERRLA, EOMI, conjunctiva normal, no discharge. [] Neck: Normal range of motion, no tenderness, supple, no stridor. [] Course breath sounds bilaterally Abdomen: Bowel sounds normal, soft, no tenderness, no masses, no pulsatile masses. [] Skin: There is some mild erythema of the right greater than left lower extremity there is some weeping of the right lower extremity pulses are present there is significant edema right greater than left 4+ Back: No tenderness, no CVA tenderness. [] Extremities: See above patient has evidence of a known CVA he is, drooling contractures noted occasionally mumbles this is baseline per family Neurologic: Psychologic: Affect normal, judgement normal, mood normal. [] Current Patient Data Lab Values Laboratory Tests Test 06/28/18 20:49 06/28/18 21:43 Glucose (Fingerstick) 75 mg/dL (70-99) White Blood Count 6.5 x10^3/uL (4.0-11.0) Red Blood Count 3.72 x10^6/uL (4.30-5.70) L Hemoglobin 12.1 g/dL (13.0-17.5) L Hematocrit 36.7 % (39.0-53.0) L Mean Corpuscular Volume 99 fL (79-100) Mean Corpuscular Hemoglobin 33 pg (25-35) Mean Corpuscular Hemoglobin Concent 33 g/dL (31-37) Red Cell Distribution Width 13.7 % (11.5-14.5) Platelet Count 157 x10^3/uL (140-400) Neutrophils (%) (Auto) 51 % (31-73) Lymphocytes (%) (Auto) 39 % (24-48) Monocytes (%) (Auto) 7 % (0-9) Eosinophils (%) (Auto) 2 % (0-3) Basophils (%) (Auto) 1 % (0-3) Neutrophils # (Auto) 3.3 x10^3uL (1.8-7.7) Lymphocytes # (Auto) 2.5 x10^3/uL (1.0-4.8) Monocytes # (Auto) 0.4 x10^3/uL (0.0-1.1) Eosinophils # (Auto) 0.1 x10^3/uL (0.0-0.7) Basophils # (Auto) 0.1 x10^3/uL (0.0-0.2) Prothrombin Time 14.4 SEC (11.7-14.0) H Prothrombin Time INR 1.2 (0.8-1.1) H Sodium Level 142 mmol/L (136-145) Potassium Level 4.1 mmol/L (3.5-5.1) Chloride Level 105 mmol/L (98-107) Carbon Dioxide Level 30 mmol/L (21-32) Anion Gap 7 (6-14) Blood Urea Nitrogen 18 mg/dL (8-26) Creatinine 1.2 mg/dL (0.7-1.3) Estimated GFR (Cockcroft-Gault) 60.6 BUN/Creatinine Ratio 15 (6-20) Glucose Level 91 mg/dL (70-99) Calcium Level 8.4 mg/dL (8.5-10.1) L Total Bilirubin 0.6 mg/dL (0.2-1.0) Aspartate Amino Transferase (AST) 20 U/L (15-37) Alanine Aminotransferase (ALT) 20 U/L (16-63) Alkaline Phosphatase 62 U/L (46-116) Troponin I Quantitative 0.038 ng/mL (0.000-0.055) TX-Cae-S-Type Natriuretic Peptide 183 pg/mL (0-124) H Total Protein 7.4 g/dL (6.4-8.2) Albumin 3.3 g/dL (3.4-5.0) L Albumin/Globulin Ratio 0.8 (1.0-1.7) L Laboratory Tests 06/28/18 21:43 Laboratory Tests 06/28/18 21:43 EKG EKG A. fib rate [address] changes anteriorly overall similar to previous EKG dated April 12, [address] elevation was noted[] Radiology/Procedures Radiology/Procedures [] Impressions: The cardiac silhouette is mildly enlarged. The thoracic aorta is tortuous. Atherosclerotic calcification of the thoracic aorta is seen. Air distention of the colon is again seen within the upper abdomen. A moderate amount of stool is seen involving the distal transverse colon/visualized descending colon. No acute pulmonary infiltrate is seen. No pneumothorax or pleural effusion is noted. The osseous structures are unchanged. IMPRESSION: No acute abnormality is seen. Electronically signed by: Carlos Meyer MD (06/28/2018 10:19 PM) [facility] DICTATED and SIGNED BY: CARLOS MEYER MD DATE: 06/28/18 1935 Course & Med Decision Making Course & Med Decision Making Pertinent Labs and Imaging studies reviewed. (See chart for details) []This is a 68-year-old male aphasic patient who is presenting with basically leg pain he may have some component of mild cellulitis I think mostly this is ch ronic. Labs look stable there was also report of chest pain since yesterday I think is extraordinarily difficult to figure out if there is any pain going on. with stable ekg and neg trop i think he is okay to go home. Troponin and EKG are negative after 24 hours of pain patient is not tachycardic or hypoxic try keflex, f/u with primary doctor if symptoms not improving. family comfortable with plan most of hx and dispo plan d/w adult family member fluent in frisian Rama Disclaimer Rama Disclaimer This electronic medical record was generated, in whole or in part, using a voice recognition dictation system. Departure Departure Impression: Primary Impression: Cellulitis Disposition: HOME, SELF-CARE Condition: STABLE Patient Instructions: Cellulitis, Zewf-mr-Yarm Scripts Cephalexin (CEPHALEXIN) 500 Mg Capsule 1 CAP PO TID, #30 CAP Prov: NATHANIEL DAMON MD 06/28/18 NATHANIEL DAMON MD June 29, 2018 00:49
[2018-06-29 01:20] VITALS: BP 150/85
--- NOTE | 2018-06-29 06:43 | EKG ---
[facility] [address] [place] [address] Test Date: 2018-06-28 Test Time: 20:37:29 Pat Name: UMM CARDOZO Department: Room: Gender: M Floor Assembler: MD : [id number] Requested By: NATHANIEL DAMON Order Number: [id number] Reading MD: Saul Urena Measurements Intervals [place] Rate: 58 P: SD: QRS: 26 QRSD: 100 T: 42 QT: 410 QTc: 405 Interpretive Statements SINUS RHYTHM Electronically Signed On 07-23-2018 11:43:02 CDT by Saul Urena
== END 2018-06-29 01:30 | disposition home or self-care (01) ==
LOC: ER 20:35
DX: G89.29 Other chronic pain (principal); L03.116 Cellulitis of left lower limb; L03.115 Cellulitis of right lower limb; R07.89 Other chest pain; I11.0 Hypertensive heart disease with heart failure; I50.9 Heart failure, unspecified; Z86.73 Personal history of transient ischemic attack (TIA), and cerebral infarction without residual deficits
CPT/HCPCS: 36415; 71045; 80053; 82962; 83880; 84484; 85025; 85610; 93005; 99285-25